=== PATIENT | female | born 1950 | race Caucasian/White ===

== ENCOUNTER → 2018-08-23 07:47 | Outpatient (CLI) | payer MEDICARE, OTHER, SELFPAY ==
[2018-08-23 09:26] LABS: Add Manual Diff / Slide Review NO; Basophils Percent Auto 1.2 % (0-2); Eosinophils Percent Auto 2.3 % (2-4); Hematocrit 39.3 % (36-46); Hemoglobin 12.8 g/dL (12.0-16.0); Lymphocytes Percent Auto 28.1 % (25-40); Mean Corpuscular HGB Conc 32.6 % (30-36); Mean Corpuscular Hemoglobin 28.6 PG (26-34); Mean Corpuscular Volume 87.5 fL (80-100); Monocytes Percent Auto 7.9 % (3-14); Neutrophils Absolute Auto 3100 /uL (3000-5900); Neutrophils Percent Auto 60.5 % (50-75); Platelet Count 272 X10^3/uL (150-400); Red Blood Cell Count 4.49 X10^6/uL (4.0-5.2); Red Cell Distribution Width 14.5 % (11.6-14.8); White Blood Cell Count 5.2 X10^3/uL (4.5-11.0)
[2018-08-23 09:47] LABS: Alanine Aminotransferase 29 IU/L (9-52); Albumin 4.2 g/dL (3.5-5.0); Albumin Globulin Ratio 1.5 (1.0-2.8); Alkaline Phosphatase 46 U/L (38-126); Aspartate Aminotransferase 25 IU/L (14-36); BUN Creatinine Ratio 21.3 (6-22); Bilirubin Total 0.6 mg/dL (0.2-1.3); Blood Urea Nitrogen 17 mg/dL (7-17); Calcium 8.9 mg/dL (8.4-10.2); Carbon Dioxide 28 mmol/L (22-32); Chloride 102 mmol/L (98-107); Estimated Glomerular Filt Rate > 60.0 mL/min (>60); Globulin 2.8 g/dL (1.7-4.1); Glucose 89 mg/dL (80-110); HEMOLYSIS < 15 (0-50); Potassium 3.8 mmol/L (3.4-5.1); Sodium 142 mmol/L (137-145)
[2018-08-23 10:20] LABS: Testosterone 35.3 ng/dL (5.71-77.0)
[2018-08-24 16:34] LABS: Dehydroepiandrosterone Sulfate 22 mcg/dL (12-133); Estradiol 56 pg/mL
== END ==
PROVIDERS: Visit Provider Family Medicine
DX: E34.9 Endocrine disorder, unspecified (principal); N95.1 Menopausal and female climacteric states; E07.9 Disorder of thyroid, unspecified
CPT/HCPCS: 36415; 80053; 82627; 82670; 82679; 83001; 83937; 84146; 84403; 84443; 85025

== ENCOUNTER → 2020-01-01 07:46 | Outpatient (CLI) | payer MEDICARE, OTHER, SELFPAY ==
[2020-01-01 08:48] LABS: Add Manual Diff / Slide Review NO; Basophils Absolute Auto 100 /uL (0-100); Basophils Percent Auto 1.2 % (0-2); Eosinophils Absolute Auto 200 /uL (0-450); Hematocrit 39.3 % (36-46); Hemoglobin 12.9 g/dL (12.0-16.0); Lymphocytes Absolute Auto 1300 /uL (1100-4500); Mean Corpuscular HGB Conc 32.8 % (30-36); Mean Corpuscular Hemoglobin 28.6 PG (26-34); Mean Corpuscular Volume 86.9 fL (80-100); Monocytes Absolute Auto 400 /uL (0-900); Neutrophils Absolute Auto 2400 /uL (1500-7000); Neutrophils Percent Auto 55.8 % (50-75); Platelet Count 281 X10^3/uL (150-400); Red Blood Cell Count 4.52 X10^6/uL (4.0-5.2); Red Cell Distribution Width 14.7 % (11.6-14.8); White Blood Cell Count 4.3 X10^3/uL (4.5-11.0)
[2020-01-01 09:25] LABS: Alanine Aminotransferase 19 IU/L (<35); Albumin 4.2 g/dL (3.5-5.0); Albumin Globulin Ratio 1.4 (1.0-2.8); Alkaline Phosphatase 46 U/L (38-126); Aspartate Aminotransferase 24 IU/L (14-36); BUN Creatinine Ratio 25.5 (6-22); Bilirubin Total 0.4 mg/dL (0.2-1.3); Blood Urea Nitrogen 24 mg/dL (7-17); Calcium 9.5 mg/dL (8.4-10.2); Carbon Dioxide 29 mmol/L (22-32); Chloride 102 mmol/L (98-107); Estimated Glomerular Filt Rate 58.9 mL/min (>60); Gamma Glutamyl Transpeptidase 17 U/L (12-43); Globulin 2.9 g/dL (1.7-4.1); Glucose 102 mg/dL (80-110); HEMOLYSIS < 15 (0-50); Potassium 4.7 mmol/L (3.4-5.1); Sodium 138 mmol/L (137-145); Total Protein 7.1 g/dL (6.3-8.2)
[2020-01-01 09:44] LABS: Prolactin 16.7 ng/mL (3.0-18.6)
[2020-01-01 10:00] LABS: Testosterone 55.2 ng/dL (5.71-77.0)
[2020-01-01 10:03] LABS: Thyroid Stimulating Hormone 2.32 uIU/mL (0.47-4.68)
[2020-01-01 10:36] LABS: Vitamin D 25 Hydroxy (D3) 36.9 ng/mL (30.0-100.0)
[2020-01-02 10:09] LABS: Dehydroepiandrosterone Sulfate 32.8 ug/dL (20.4-186.6)
[2020-01-03 12:08] LABS: IGF-1 79 ng/mL (38-163)
[2020-01-04 11:07] LABS: Magnesium, RBC 6.1 mg/dL (4.2-6.8)
[2020-01-06 12:36] LABS: Estradiol 46.6 pg/mL (.); Estriol,Serum <0.1 ng/mL (.); Estrone,Serum 62 pg/mL (.)
== END ==
PROVIDERS: PCP Family Medicine; Referring Provider Family Medicine; Visit Provider Family Medicine
DX: E34.9 Endocrine disorder, unspecified (principal); E07.9 Disorder of thyroid, unspecified; N95.0 Postmenopausal bleeding; E55.9 Vitamin D deficiency, unspecified
CPT/HCPCS: 36415; 80053; 82306; 82627; 82670; 82677; 82679; 82977; 83001; 83735; 84146; 84305; 84403; 84443; 85025

== ENCOUNTER → 2021-01-28 08:14 | Outpatient (CLI) | payer MEDICARE, OTHER, SELFPAY ==
[2021-01-28 09:05] LABS: Add Manual Diff / Slide Review NO; Basophils Absolute Auto 0 /uL (0-100); Basophils Percent Auto 0.9 % (0-2); Eosinophils Absolute Auto 200 /uL (0-450); Eosinophils Percent Auto 3.8 % (2-4); Hematocrit 39.8 % (36-46); Hemoglobin 12.9 g/dL (12.0-16.0); Lymphocytes Absolute Auto 1600 /uL (1100-4500); Lymphocytes Percent Auto 31.4 % (25-40); Mean Corpuscular HGB Conc 32.4 % (30-36); Mean Corpuscular Hemoglobin 28.3 PG (26-34); Mean Corpuscular Volume 87.5 fL (80-100); Monocytes Absolute Auto 500 /uL (0-900); Monocytes Percent Auto 9.2 % (3-14); Neutrophils Absolute Auto 2700 /uL (1500-7000); Neutrophils Percent Auto 54.7 % (50-75); Platelet Count 309 X10^3/uL (150-400); Red Blood Cell Count 4.54 X10^6/uL (4.0-5.2); Red Cell Distribution Width 15.3 % (11.6-14.8)
[2021-01-28 09:18] LABS: Alanine Aminotransferase 24 IU/L (<35); Albumin 4.5 g/dL (3.5-5.0); Albumin Globulin Ratio 1.5 (1.0-2.8); Alkaline Phosphatase 48 U/L (38-126); Aspartate Aminotransferase 29 IU/L (14-36); BUN Creatinine Ratio 24.5 (6-22); Bilirubin Total 0.5 mg/dL (0.2-1.3); Blood Urea Nitrogen 23 mg/dL (7-17); Calcium 9.9 mg/dL (8.4-10.2); Carbon Dioxide 29 mmol/L (22-32); Chloride 101 mmol/L (98-107); Cholesterol 218 mg/dL (140-199); Estimated Glomerular Filt Rate 58.5 mL/min (>60); Gamma Glutamyl Transpeptidase 21 U/L (12-43); Glucose 101 mg/dL (80-110); HDL Cholesterol 61 mg/dL (40-60); HEMOLYSIS < 15 (0-50); LDL Cholesterol Calculated 142 mg/dL (<100); Potassium 4.1 mmol/L (3.4-5.1); Sodium 138 mmol/L (137-145); Total Protein 7.5 g/dL (6.3-8.2); Triglycerides 74 mg/dL (35-150)
[2021-01-28 09:30] LABS: HEMOLYSIS < 15 (0-50); Iron 87 ug/dL (37-170)
[2021-01-28 09:32] LABS: Prolactin 9.7 ng/mL (3.0-18.6)
[2021-01-28 09:40] LABS: Percent Iron Saturation 27 % (15-50); Total Iron Binding Capacity 321 ug/dL (265-497); Transferrin 281 mg/dL (206-381)
[2021-01-28 09:46] LABS: Erythrocyte Sedimentation Rate 9 MM/HR (0-20)
[2021-01-28 09:50] LABS: Ferritin 64 ng/mL (11-264); Testosterone 44.3 ng/dL (5.71-77.0)
[2021-01-28 10:01] LABS: Thyroid Stimulating Hormone 0.397 uIU/mL (0.47-4.68)
[2021-01-28 10:04] LABS: Estradiol, Total 13.5 pg/mL
[2021-01-28 12:40] LABS: High Sensitivity CRP - Cardiac 1.9 mg/L (1.0-3.0)
[2021-02-01 04:39] LABS: IGF-1 119 ng/mL (48-191)
[2021-02-01 15:13] LABS: Glucose-6-Phosphate Dehydrogen 259 (127-427)
[2021-02-02 09:07] LABS: Magnesium, RBC 6.7 mg/dL (4.2-6.8)
== END ==
PROVIDERS: PCP Family Medicine; Referring Provider Family Medicine; Visit Provider Family Medicine
DX: Z00.01 Encounter for general adult medical examination with abnormal findings (principal); E55.9 Vitamin D deficiency, unspecified; E34.9 Endocrine disorder, unspecified; E07.9 Disorder of thyroid, unspecified; N95.1 Menopausal and female climacteric states; Z13.21 Encounter for screening for nutritional disorder
CPT/HCPCS: 36415; 80053; 80061; 82306; 82627; 82670; 82679; 82728; 82955; 82977; 83001; 83540; 83550; 83735; 84146; 84305; 84403; 84443; 85025; 85041; 85651; 86140

== ENCOUNTER → 2022-06-08 11:08 | Outpatient (CLI) | payer MEDICARE, OTHER, SELFPAY ==
[2022-06-08 14:27] LABS: Add Manual Diff / Slide Review NO; Basophils Absolute Auto 0 /uL (0-100); Basophils Percent Auto 0.7 % (0-2); Eosinophils Absolute Auto 100 /uL (0-450); Eosinophils Percent Auto 1.8 % (2-4); Hematocrit 36.4 % (36-46); Hemoglobin 12.5 g/dL (12.0-16.0); Lymphocytes Absolute Auto 1500 /uL (1100-4500); Lymphocytes Percent Auto 27.2 % (25-40); Mean Corpuscular HGB Conc 34.2 % (30-36); Mean Corpuscular Hemoglobin 29.1 PG (26-34); Mean Corpuscular Volume 84.9 fL (80-100); Monocytes Absolute Auto 500 /uL (0-900); Neutrophils Absolute Auto 3500 /uL (1500-7000); Neutrophils Percent Auto 61.3 % (50-75); Platelet Count 274 X10^3/uL (150-400); Red Blood Cell Count 4.29 X10^6/uL (4.0-5.2); Red Cell Distribution Width 14.6 % (11.6-14.8); White Blood Cell Count 5.7 X10^3/uL (4.5-11.0)
[2022-06-08 15:00] LABS: HEMOLYSIS < 15 (0-50); Iron 107 ug/dL (37-170)
[2022-06-08 15:02] LABS: Alanine Aminotransferase 23 IU/L (<35); Albumin 4.3 g/dL (3.5-5.0); Albumin Globulin Ratio 1.8 (1.0-2.8); Alkaline Phosphatase 52 U/L (38-126); Aspartate Aminotransferase 36 IU/L (14-36); BUN Creatinine Ratio 20.6 (6-22); Bilirubin Total 0.7 mg/dL (0.2-1.3); Blood Urea Nitrogen 21 mg/dL (7-17); Calcium 9.3 mg/dL (8.4-10.2); Carbon Dioxide 32 mmol/L (22-32); Chloride 100 mmol/L (98-107); Cholesterol 179 mg/dL (140-199); Estimated Glomerular Filt Rate 58 mL/min (>60); Gamma Glutamyl Transpeptidase 16 U/L (12-43); Globulin 2.4 g/dL (1.7-4.1); Glucose 82 mg/dL (80-110); HDL Cholesterol 53 mg/dL (40-60); HEMOLYSIS < 15 (0-50); LDL Cholesterol Calculated 114 mg/dL (<100); Magnesium 2.4 mg/dL (1.6-2.3); Sodium 139 mmol/L (137-145); Total Protein 6.7 g/dL (6.3-8.2); Triglycerides 60 mg/dL (35-150); Uric Acid 5.3 mg/dL (2.5-6.2)
[2022-06-08 15:13] LABS: Percent Iron Saturation 35 % (15-50); Total Iron Binding Capacity 309 ug/dL (265-497); Transferrin 233 mg/dL (206-381)
[2022-06-08 15:15] LABS: Free T4, Direct Thyroxine 1.25 ng/dL (0.78-2.19); T4 Total Thyroxine 7.95 ug/dL (5.5-11.0)
[2022-06-08 15:16] LABS: Prolactin 6.5 ng/mL (3.0-18.6)
[2022-06-08 15:28] LABS: Thyroid Stimulating Hormone 0.159 uIU/mL (0.47-4.68)
[2022-06-08 15:34] LABS: Ferritin 73 ng/mL (11-264); Testosterone 38.5 ng/dL (5.71-77.0)
[2022-06-08 15:45] LABS: Erythrocyte Sedimentation Rate 8 MM/HR (0-20)
[2022-06-08 16:48] LABS: Vitamin D 25 Hydroxy (D3) 122 ng/mL (30.0-100.0)
[2022-06-08 16:49] LABS: Follicle Stimulating Hormone 26.5 mIU/mL
[2022-06-08 17:05] LABS: Estradiol, Total 19.3 pg/mL
[2022-06-09 05:28] LABS: Thyroid Peroxidase Antibodies 11 IU/mL (0-34); Triiodothyronine T3 Total 100 ng/dL (71-180)
[2022-06-09 16:31] LABS: Anti Thyroglobulin Antibody <1.0 IU/mL (0.0-0.9)
[2022-06-10 19:52] LABS: IGF-1 90 ng/mL (48-191)
[2022-06-12 20:50] LABS: Magnesium, RBC 6.6 mg/dL (4.2-6.8)
[2022-06-13 13:17] LABS: Estradiol 22.9 pg/mL (.); Estriol,Serum <0.1 ng/mL (.); Estrone,Serum 6 pg/mL (0-125)
[2022-06-14 13:01] LABS: Triiodothyronine T3 Reverse 14.3 ng/dL (9.2-24.1)
[2022-06-30 12:44] LABS: Dehydroepiandrosterone (DHEA) 125
== END ==
PROVIDERS: Referring Provider Family Medicine; Visit Provider Family Medicine
DX: Z00.01 Encounter for general adult medical examination with abnormal findings (principal); E07.9 Disorder of thyroid, unspecified; Z13.21 Encounter for screening for nutritional disorder; E55.9 Vitamin D deficiency, unspecified; E34.9 Endocrine disorder, unspecified; N95.1 Menopausal and female climacteric states
CPT/HCPCS: 36415; 80053; 80061; 82306; 82627; 82670; 82677; 82679; 82728; 82977; 83001; 83540; 83550; 83735; 84146; 84305; 84403; 84436; 84439; 84443; 84480; 84482; 84550; 85025; 85651; 86140; 86376; 86800; 86900; 86901

== ENCOUNTER → 2025-09-01 07:40 | Outpatient (CLI) | payer MEDICARE, OTHER, SELFPAY ==
[2025-09-01 08:54] LABS: Reticulocyte Count, Percent 0.9 % (1.1-2.6)
[2025-09-01 09:21] LABS: Iron 83 ug/dL (37-170); Lactate (Lactic Acid) 0.8 mmol/L (0.7-2.1)
[2025-09-01 09:23] LABS: Cholesterol 268 mg/dL (140-199); Creatine Kinase 69 U/L (30-135); HDL Cholesterol 53 mg/dL (40-60); Magnesium 2.4 mg/dL (1.6-2.3); Triglycerides 94 mg/dL (35-150); Uric Acid 6.2 mg/dL (2.5-6.2)
[2025-09-01 09:24] LABS: Gamma Glutamyl Transpeptidase < 10 U/L (12-43)
[2025-09-01 09:33] LABS: Percent Iron Saturation 30 % (15-50); Total Iron Binding Capacity 273 ug/dL (265-497)
[2025-09-01 09:45] LABS: Follicle Stimulating Hormone 11.6 mIU/mL
[2025-09-01 09:58] LABS: Ferritin 105 ng/mL (11-264)
[2025-09-01 10:01] LABS: Estradiol, Total 268.6 pg/mL
[2025-09-01 10:30] LABS: Folate > 20.0 ng/mL (2.76-20.0)
[2025-09-03 11:08] LABS: Estrone,Serum 58 pg/mL (0-125)
[2025-09-04 00:09] LABS: IGF-1 71 ng/mL (42-185)
== END ==
PROVIDERS: Referring Provider Family Medicine; Visit Provider Family Medicine
DX: Z00.01 Encounter for general adult medical examination with abnormal findings (principal); Z13.21 Encounter for screening for nutritional disorder; E07.9 Disorder of thyroid, unspecified; E34.9 Endocrine disorder, unspecified; E55.9 Vitamin D deficiency, unspecified; N95.1 Menopausal and female climacteric states
CPT/HCPCS: 80061; 82550; 82627; 82670; 82679; 82728; 82746; 82977; 83001; 83540; 83550; 83605; 83735; 84146; 84305; 84403; 84550; 85045; 86769